=== PATIENT | female | born 1955 | race Caucasian/White ===

== ENCOUNTER 2018-05-09 20:00 | Inpatient (IN) | payer OTHER ==
[~2018-05-09] VITALS: Ht 152.4 cm; Wt 62.3 kg
[2018-05-09 21:08] LABS: PLATELET COUNT 233 x10^3mcL (130-400); RED CELL DISTRIBUTION WIDTH 12.6 % (11.5-14.5)
[2018-05-09 21:08] LABS: UA SPECIFIC GRAVITY 1.015 (1.005-1.035); microscopic required? YES; urine erythrocyte 2+ (NEGATIVE)
[2018-05-09 21:30] LABS: CALCIUM 8.3 mg/dL (8.5-10.1); CARBON DIOXIDE 25.6 mmol/L (21-32); CREATININE SERUM 3.2 mg/dL (0.6-1.0); POTASSIUM SERUM 3.8 mmol/L (3.5-5.1)
[2018-05-09 21:35] LABS: BILIRUBIN TOTAL 1.3 mg/dL (0.20-1.00); TOTAL PROTEIN, SERUM 7.5 g/dL (6.4-8.2)
[2018-05-09 21:36] LABS: BAND NEUTROPHIL 1 % (0-10); BASOPHIL 0 % (0-2); MONOCYTE 4 % (0-7); SEGMENTED NEUTROPHILS 89 % (37-75); rbc morphology (normal/abnorm) NORMAL (NORMAL)
[2018-05-09] MEDS ORDERED: LANTUS SOLOS100 U/M1 SQ (22:19)
[2018-05-09 23:10] VITALS: BP 125/66
[2018-05-10] MEDS ORDERED: NEU300 PO ×2 (00:08→00:10)
[2018-05-10] MEDS ORDERED: PROPRANOLOL HCL40 MG PO (00:12)
[2018-05-10] MEDS ORDERED: HYDROCHLOROTHIA25 MG PO (00:13)
[2018-05-10] MEDS ORDERED: GOOD SENSE OMEP20 MG PO (00:13)
[2018-05-10] MEDS ORDERED: NOR10 PO (00:14)
[2018-05-10] MEDS ORDERED: JARDIANCE10 MG PO (00:15)
[2018-05-10] MEDS ORDERED: D-20001 TAB PO (00:16)
[2018-05-10] MEDS ORDERED: LOSARTAN POTASS1 TA8 PO (00:16)
[2018-05-10] MEDS ORDERED: ASPIR 8181 MG (00:19)
[2018-05-10 05:53] VITALS: BP 155/67
[2018-05-10 06:38] LABS: PLATELET COUNT 198 x10^3mcL (130-400); RED CELL DISTRIBUTION WIDTH 12.9 % (11.5-14.5)
[2018-05-10 06:54] LABS: BASOPHIL % 0 % (0-2)
[2018-05-10 06:57] LABS: CALCIUM 7.6 mg/dL (8.5-10.1); CARBON DIOXIDE 23.6 mmol/L (21-32); CREATININE SERUM 2.8 mg/dL (0.6-1.0); POTASSIUM SERUM 3.7 mmol/L (3.5-5.1)
[2018-05-10 09:46] VITALS: BP 116/66
[2018-05-10 11:27] LABS: IRON 16 ug/dL (50-170); RED BLOOD CELLS 3.17 M/mm3 (4.10-5.10); TOTAL IRON BINDING CAPACITY 157 ug/dL (250-450)
[2018-05-10 14:03] VITALS: BP 99/52
[2018-05-10 17:44] VITALS: BP 120/62
[2018-05-10 21:00] VITALS: BP 127/67
[2018-05-10 21:11] LABS: CREATININE UR 53.1 mg/dL
[2018-05-10 22:30] VITALS: BP 113/77
[2018-05-11 05:38] VITALS: BP 134/63
[2018-05-11 08:54] VITALS: BP 117/53
[2018-05-11 11:40] LABS: CARBON DIOXIDE 24.3 mmol/L (21-32); CREATININE SERUM 2.6 mg/dL (0.6-1.0); POTASSIUM SERUM 4.1 mmol/L (3.5-5.1)
[2018-05-11 11:48] LABS: PLATELET COUNT 156 x10^3mcL (130-400)
[2018-05-11 13:13] VITALS: BP 117/57
[2018-05-11 13:59] VITALS: BP 115/62
[2018-05-11 14:04] LABS: BAND NEUTROPHIL 2 % (0-10); BASOPHIL 0 % (0-2); MONOCYTE 3 % (0-7); PLATELET MORPHOLOGY LARGE PLATELET SEEN; SEGMENTED NEUTROPHILS 88 % (37-75); ovalocyte/elliptocyte 1+; rbc morphology (normal/abnorm) ABNORMAL (NORMAL)
[2018-05-12 11:47] VITALS: Ht 152.4 cm; Wt 62.3 kg
== END 2018-05-11 15:00 | disposition home or self-care (01) | DRG 872 ==
LOC: ED 20:00 → DU 22:15
PROVIDERS: Emergency Medicine; Internal Medicine; Internal Medicine Nephrology
DX: A41.9 Sepsis, unspecified organism (principal); N10 Acute pyelonephritis; N17.9 Acute kidney failure, unspecified; E87.1 Hypo-osmolality and hyponatremia; R65.20 Severe sepsis without septic shock; R80.9 Proteinuria, unspecified; E86.1 Hypovolemia; E11.65 Type 2 diabetes mellitus with hyperglycemia; E11.22 Type 2 diabetes mellitus with diabetic chronic kidney disease; I12.9 Hypertensive chronic kidney disease with stage 1 through stage 4 chronic kidney disease, or unspecified chronic kidney disease; N18.9 Chronic kidney disease, unspecified; G40.909 Epilepsy, unspecified, not intractable, without status epilepticus; Z68.24 Body mass index [BMI] 24.0-24.9, adult; Z87.11 Personal history of peptic ulcer disease; Z79.4 Long term (current) use of insulin
CPT/HCPCS: J0696; J1815; J1956; J2550; J7030; J7040; Q0092; Q0162

== ENCOUNTER 2019-07-26 22:24 | Emergency (ER) | payer OTHER ==
[~2019-07-26] VITALS: Ht 152.4 cm; Wt 55.3 kg
[~2019-07-26 22:24] MED LIST: ASPIR 8181 MG; D-20001 TAB PO; GOOD SENSE OMEP20 MG PO; HYDROCHLOROTHIA25 MG PO; JARDIANCE10 MG PO; LANTUS SOLOS100 U/M1 SQ; LOSARTAN POTASS1 TA8 PO; NEU300 PO; NOR10 PO; PROPRANOLOL HCL40 MG PO
[2019-07-26 22:41] VITALS: Ht 152.4 cm; Wt 55.3 kg
[2019-07-27 03:01] VITALS: BP 139/69
== END 2019-07-27 03:24 | disposition home or self-care (01) ==
LOC: ED 22:24
DX: J20.9 Acute bronchitis, unspecified (principal); I10 Essential (primary) hypertension; E11.9 Type 2 diabetes mellitus without complications
CPT/HCPCS: 87804; J7613